=== PATIENT | male | born 1985 | race Caucasian/White ===

== ENCOUNTER 2023-01-15 19:39 | Emergency (ER) | payer BC, SELFPAY ==
[2023-01-15 21:04] VITALS: BP 122/82; PULSE 88; RESP 22; TEMP 36.6; O2SAT 95
[2023-01-15 21:49] LABS: Influenza A QL RT-PCR Negative (Negative); Influenza B QL RT-PCR Negative (Negative); RSV RNA, RT-PCR Negative (Negative); SARS-CoV-2 RNA PCR Negative
== END 2023-01-16 03:59 | disposition left against medical advice (07) ==
PROVIDERS: Emergency Provider Emergency Medicine; PCP Family Medicine
DX: R50.9 Fever, unspecified (principal); Z20.822 Contact with and (suspected) exposure to COVID-19
CPT/HCPCS: 87637; 99199

== ENCOUNTER 2023-01-16 08:05 | Emergency (ER) | payer BC, SELFPAY ==
--- NOTE | ~2023-01-16 | XR_ITS ---
EXAMINATION: XR chest 2V DATE: 01/16/2023 08:41 INDICATION: Increasing shortness of breath. Fever. TECHNIQUE: Frontal and lateral views of the chest were obtained. COMPARISON: None. FINDINGS: There is mild scarring at the lung apices. There is an 8 mm nodule in right upper lobe. No pleural effusion or pneumothorax. The heart size is normal. IMPRESSION: 1. 8 mm nodule in right upper lobe, which may be granulomatous disease or less likely malignancy. Non contrast chest CT is recommended. 2. Mild scarring at the lung apices. Reviewed, dictated and finalized at location A. UNITY ENGAGEMENT MANAGER IMPRESSION: 1. 8 mm nodule in right upper lobe, which may be granulomatous disease or less likely malignancy. Noncontrast chest CT is recommended. 2. Mild scarring at the lung apices.
--- NOTE | 2023-01-16 08:08 | ED.URI ---
HPI - URI/Sore Throat General Chief Complaint: Upper Respiratory Infection Stated Complaint: SOB/TIRED/FEVER Time Seen by Provider: 01/16/23 08:08 Source: patient and RN notes reviewed History of Present Illness HPI Narrative: Patient is a 37-year-old male who presents to urgent care with complaints of shortness of breath, worse on exertion, extreme fatigue and fevers. Patient states it started approximately 5 days ago and seems to have worsened. Patient states that he was supposed to go on vacation and flew to [place] on Friday and had to come back. Patient was in the emergency room last night and was negative for influenza, COVID and RSV. Patient left the emergency room before seen by a provider. Patient has had 2 bouts of strep throat this year but states that ?this does not feel like upper respiratory and ?. Patient denies any chest pain or palpitations. States he does feel like his chest is tight at times. No other acute complaints. No acute distress noted. Patient aware of the plan of care. Some parts of this dictation were generated by voice recognition software and may contain typographical and/or grammatical inaccuracies. Related Data Home Medications Medication Instructions Recorded Confirmed mirabegron 25 mg tablet,extended 25 mg PO DAILY 01/16/23 01/16/23 release 24 hr (Myrbetriq) Allergies Allergy/AdvReac Type Severity Reaction Status Date / Time cephalexin Allergy Unknown Rash Verified 01/16/23 08:25 Cephalosporins Allergy Unknown Unknown Verified 01/16/23 08:25 erythromycin base Allergy Unknown Nausea Verified 01/16/23 08:25 Review of Systems Review of Systems: CONSTITUTIONAL: Reports of fever, chills, fatigue EYES: Denies visual changes, redness, or discharge. ENT: Denies rhinorrhea, congestion, sore throat, or otalgia. CARDIOVASCULAR: Denies chest pain, palpitations, or edema. RESPIRATORY: Reports of productive cough and dyspnea GASTROINTESTINAL: Denies abdominal pain, nausea, vomiting, or diarrhea. GENITOURINARY: Denies dysuria or hematuria. SKIN: Denies rash or itching. MUSCULOSKELETAL: Denies back pain, joint pain, or myalgia. NEUROLOGIC: Denies headache, numbness, or weakness. All other systems reviewed are negative, except as documented in HPI. [facility] Past Medical History Medical History Back pain of lumbar region with sciatica Overweight (BMI 25.0-29.9) Family History Family History Mother Family history of malignant neoplasm of cervix Other Diabetes mellitus Social History Social History Smoking status: Never smoker Alcohol intake: current Comments At the time of my signature, I reviewed and agree with the nursing past medical, surgical, social, and family history. There is no relevant family history pertinent to the patient complaint. Exam Narrative: GENERAL: This is a well-nourished, well-developed patient, appears fatigued HEAD: normocephalic, atraumatic. EYES: PERRL. Sclera clear/white. Vision is grossly intact. EARS: External ears normal, auditory canals clear and without drainage, TMs normal without perforation. Hearing grossly intact. NOSE: External nose normal with no obvious nasal discharge, nares without redness, clear rhinorrhea. THROAT: Mucous membranes moist, posterior pharynx clear. Mild postnasal drainage NECK: Neck supple, non-tender without lymphadenopathy CARDIOVASCULAR: Regular rate and rhythm RESPIRATORY: Clear to auscultation. Breath sounds equal bilaterally. No wheezes, rales, or rhonchi. SKIN: warm, intact with no suspicious lesions or rash, good texture and turgor. NEURO: awake, alert, and oriented to person, place and time. There were no obvious focal neurologic abnormalities. EXTREMITIES: No clubbing, cyanosis, or edema. Course Course Level of Care: Express Care Visit Vital Signs
[2023-01-16 08:14] VITALS: BP 120/78; PULSE 74; RESP 16; TEMP 36.6; O2SAT 100
== END 2023-01-16 09:05 | disposition short-term general hospital (02) ==
PROVIDERS: Emergency Provider Nurse Practitioner Family; PCP Family Medicine
DX: R91.8 Other nonspecific abnormal finding of lung field (principal); R06.02 Shortness of breath; R53.83 Other fatigue
CPT/HCPCS: 71046; 99213; G0463

== ENCOUNTER 2023-01-16 09:23 | Emergency (ER) | payer BC, SELFPAY ==
[2023-01-16] VITALS (23 sets, daily range): BP systolic 127–150; BP diastolic 81–91; PULSE 68–101; RESP 11–23; TEMP 36.9; O2SAT 97–100
--- NOTE | ~2023-01-16 | CT_ITS ---
EXAMINATION: CTA chest PE protocol DATE: 01/16/2023 12:27 INDICATION: Dyspnea. Tachycardia. TECHNIQUE: Computed tomography angiography (CTA) of the chest was performed with 100 mL Omnipaque-350 intravenous contrast timed to evaluate the pulmonary arteries. Coronal maximum intensity projection 3D-reconstructions were created by the technologist. Automated exposure control and iterative reconst ruction technique were employed. The dose-length product was 440.51 mGy-cm. COMPARISON: None. FINDINGS: There is mild scarring at the lung apices. There is a cluster of nodules at right lung apex measuring up to 8 mm. There is mild emphysema. No pleural effusion. The heart size is normal. No per icardial effusion. There is no pulmonary embolus. There is mild thoracic spondylosis. IMPRESSION: 1. Nodules at right lung apex measuring up to 8 mm, most likely granulomatous disease. Noncontrast lo w-dose chest CT is recommended in 3-6 months to exclude malignancy. 2. Mild emphysema. 3. No pulmonary embolus. Reviewed, dictated and finalized at location A. KEN STUFFER IMPRESSION: 1. Nodules at right lung apex measuring up to 8 mm, most likely granulomatous d isease. Noncontrast low-dose chest CT is recommended in 3-6 months to exclude m alignancy. 2. Mild emphysema. 3. No pulmonary embolus.
--- NOTE | 2023-01-16 11:01 | ECG_ITS ---
Measurements Intervals [place] Rate: 69 P: 61 CO: 155 QRS: 63 QRSD: 113 T: 47 QT: 432 QTc: 465 Interpretive Statements SINUS RHYTHM INCOMPLETE RIGHT BUNDLE BRANCH BLOCK [90+ ms QRS DURATION, TERMINAL R IN V1/V2, 40+ ms S IN I/aVL/V4/V5/V6] NO PREVIOUS ECG AVAILABLE FOR COMPARISON Electronically Signed On 01-16-2023 14:59:15 DINKEY MECHANIC by Carlos Ramos M.D.
[2023-01-16 11:13] LABS: Basophils Percent Auto 0.6 % (0.2-1.2); Eosinophils Percent Auto 0.2 % (0-4.4); Hematocrit 48.2 % (42.0-52.0); Hemoglobin 16.5 g/dL (14.0-18.0); Immature Granulocyte Absolute 0.02 K/mm3 (0.00-0.031); Immature Granulocyte Percent A 0.4 % (0-0.5); Lymphocytes Absolute Auto 1.37 K/mm3 (0.9-3.2); Lymphocytes Percent Auto 25.1 % (18.3-44.2); Mean Corpuscular HGB Conc 34.2 g/dl (32-36); Mean Corpuscular Hemoglobin 29.7 pg (26-34); Mean Corpuscular Volume 86.7 fl (80-100); Mean Platelet Volume 9.4 fl (7.4-10.4); Monocytes Absolute Auto 0.6 K/mm3 (0.1-0.6); Neutrophils Absolute Auto 3.4 K/mm3 (1.3-6.7); Neutrophils Percent Auto 62.7 % (45.5-73.1); Platelet Count Result 369 k/mm3 (150-375); Red Blood Count 5.56 M/mm3 (4.6-6.20); Red Cell Distribution Width 13.2 % (11.5-14.5); White Blood Count 5.5 K/mm3 (4.5-10.0)
[2023-01-16 11:22] LABS: Alanine Aminotransferase 26 U/L (6-50); Albumin Level 5.2 g/dL (3.5-5.1); Alkaline Phosphatase 68 U/L (38-126); Anion Gap 11 mmol/L (8-16); Aspartate Amino Transferase 28 U/L (17-59); Bilirubin,Total 1.1 mg/dL (0.2-1.3); Blood Urea Nitrogen 17 mg/dL (9-20); Calcium 9.4 mg/dL (8.4-10.2); Carbon Dioxide 25 mmol/L (22-30); Chloride 104 mmol/L (98-107); Estimated CRCL calculation 94 ml/min; Estimated Glomerular Filt Rate > 60; Glucose 93 mg/dL (65-110); Potassium 3.8 mmol/L (3.4-5.0); Sodium 140 mmol/L (137-145)
--- NOTE | 2023-01-16 11:59 | ED.SOB ---
HPI - SOB/Dyspnea General Chief Complaint: Shortness of Breath/Dyspnea Stated Complaint: SOB - sent from abnormal CXR findings Time Seen by Provider: 01/16/23 11:46 History of Present Illness HPI Narrative: Patient is a 37-year-old male here for evaluation of dyspnea for the past several weeks. Patient states that he has been short of breath at rest and on exertion. Reports a heaviness sensation in his chest. He did have several days of a fever that he treated at home with ibuprofen and Tylenol, resolved. Reports a cough productive of purulent sputum. Patient states he used to smoke but quit, currently vapes. Sent from due to presence of nodule on CXR. Did have a recent trip to [place] for vacation. Related Data Home Medications Medication Instructions Recorded Confirmed mirabegron 25 mg tablet,extended 25 mg PO DAILY 01/16/23 01/16/23 release 24 hr (Myrbetriq) Allergies Allergy/AdvReac Type Severity Reaction Status Date / Time cephalexin Allergy Unknown Rash Verified 01/16/23 09:24 Cephalosporins Allergy Unknown Unknown Verified 01/16/23 09:24 erythromycin base Allergy Unknown Nausea Verified 01/16/23 09:24 Review of Systems Review of Systems: Gen.: Denies fevers or chills Eyes: Denies eye pain or visual change ENT: Denies congestion Respiratory: Reports shortness of breath and cough CV: Denies chest pain or palpitations GI: Denies abdominal pain nausea, emesis or diarrhea denies burning, urgency, frequency or hematuria Musculoskeletal: Denies back pain or muscle pain Neuro: Denies numbness, tingling, weakness or focal weakness Skin: Denies rash Except as documented, all other systems reviewed and negative [facility] Past Medical History Medical History Back pain of lumbar region with sciatica Overweight (BMI 25.0-29.9) Family History Family History Mother Family history of malignant neoplasm of cervix Other Diabetes mellitus Social History Social History Smoking status: Never smoker Alcohol intake: current Exam Narrative: APPEARANCE: Well appearing, no pain in distress, well-nourished. Head: Normocephalic and atraumatic. EYES: PERRLA/EOMI, conjunctivae clear NOSE: No nasal drainage EARS: External ear normal in appearance THROAT: Oropharynx is clear. Mucous membranes are moist. NECK: Supple. No adenopathy, no masses. RESPIRATORY: Airway patent, respirations nonlabored. Clear to auscultation bilaterally, no rales, rhonchi, wheezing. CARDIOVASCULAR: Regular rate and rhythm without murmurs, rubs, or gallops. ABDOMINAL: Normoactive bowel sounds. Soft, nontender, nondistended. No rebound tenderness or guarding. MUSCULOSKELETAL: Extremities are warm and well-perfused. Moves all extremities well. No edema. NEURO: Normal speech. No focal neurologic deficits. SKIN: Skin is warm and dry. No rashes. PSYCHIATRIC: Normal affect/mood. Course Vital Signs Vital signs: Vital Signs Temperature 98.5 F 01/16/23 09:37 Pulse Rate 93 01/16/23 09:37 Respiratory Rate 22 H 01/16/23 09:37 Blood Pressure 141/90 H 01/16/23 09:37 Pulse Oximetry 100 01/16/23 09:37 Oxygen Delivery Room Air 01/16/23 09:37 Temperature 98.5 F 01/16/23 09:37 Pulse Rate 80 01/16/23 14:00 Respiratory Rate 23 H 01/16/23 14:00 Blood Pressure 147/86 H 01/16/23 14:00 Pulse Oximetry 100 01/16/23 14:00 Oxygen Delivery Room Air 01/16/23 09:37 MDM - SOB/Dyspnea MDM Narrative Medical decision making narrative: 37-year-old male here for evaluation of dyspnea over the past several weeks, sent from d/t pulmonary nodule seen on CXR. Patient is non-toxic in appearance with slight tachypnea to 22 but no respiratory distress. Complaining of mild chest tightness; EKG and trop are non-ischemic. CTA PE study confirms findings of nodul
[2023-01-16 12:59] LABS: Troponin I < 0.012 ng/mL (0.000-0.034)
[2023-01-16] MEDS: ALBUTEROL SULFATE NEB 2.5 MG/3 ML INH INHALATION (13:20)
== END 2023-01-16 14:07 | disposition home or self-care (01) ==
PROVIDERS: Emergency Medicine; Emergency Provider Physician Assistant; PCP Family Medicine
DX: R91.8 Other nonspecific abnormal finding of lung field (principal); E66.3 Overweight; Z68.26 Body mass index [BMI] 26.0-26.9, adult; F17.290 Nicotine dependence, other tobacco product, uncomplicated; J43.9 Emphysema, unspecified; I45.10 Unspecified right bundle-branch block
CPT/HCPCS: 36415; 71275; 80053; 84484; 85025; 87070; 87205; 93005; 94640; 99284; Q9967

== ENCOUNTER 2023-03-13 08:05 | Outpatient (CLI) | payer BC, SELFPAY ==
--- NOTE | 2023-03-14 12:12 | P.PCNPFT_ITS ---
PFT Procedure Performed PFT Procedure Performed Spirometry with Pre/Post Bronchodilator Plethysmography (Lung Vol) Diffusing Cap (DLCO) Flow Vol Loop PFT Interpretation DOS: 03/13/2023 REQUESTING: Mio Rao APRN REASON FOR TESTING: emphysema PULMONARY FUNCTION TESTS Results are reliable and reproducible. Spirometry: Pre-bronchodilator FEV1 is 4.73 L, 125%, elevated. Pre- bronchodilator FVC is 6.04 L, 131%, elevated. The FEV1/ FVC ratio is 78%, normal. After bronchodilator, the FEV1 increases 7%, 5.05 L, 133% predicted. After bronchodilator the FVC increases 1%, 6.11 L, 132% predicted. The FEV1/FVC ratio is 83%. This is not statistically significant. Lung volumes: Total lung capacity is elevated 7.26 L, 122%, mild hyperinflation. Residual volume is 1.22 L, 68%, normal. RV/TLC is 17%, below normal. Airway resistance is 1.65, 146% predicted. Diffusion: DLCO Is 32.1, 120%, within the normal range. DLCO/VA is 4.89, 107%, normal. Flow volume loop: Normal. IMPRESSION: The study shows normal spirometry, mild hyperinflation, no air trapping and normal DLCO. Lack of response to bronchodilator should not preclude use if clinically indicated. Clinical correlation recommended. Malena Kebede MD
== END 2023-03-13 08:06 | disposition home or self-care (01) ==
LOC: ANHPFT 08:07
PROVIDERS: PCP Family Medicine; Visit Provider Nurse Practitioner Family
DX: J43.9 Emphysema, unspecified (principal); R94.2 Abnormal results of pulmonary function studies
CPT/HCPCS: 94060; 94726; 94729

== ENCOUNTER 2023-04-15 14:33 | Outpatient (CLI) | payer BC, SELFPAY ==
--- NOTE | ~2023-04-15 | CT_ITS ---
CT Scan of the Chest without Contrast: Clinical Indication: Pulmonary nodule Technique: Contiguous sections were acquired throughout the chest without intravenous contrast. Dose reduction technique was used on this scan by utilizing automated exposure control and iterative recon struction technique. The dose-length product (DLP) was 133.50 mGy-cm. COMPARISON: 01/16/2023 Findings: There is no evidence of any significant mediastinal, hilar or axillary lymphadenopathy. The mediastin al soft tissues appear normal. There is no evidence of pleural or pericardial effusion. Stable right apical pulmonary nodules. Left lung is clear. Images through the upper abdomen reveal no abnormalities. Impression: Stable right apical pulmonary nodules, likely chronic scarring. Reviewed, dictated and finalized at location . Impression: Stable right apical pulmonary nodules, likely chronic scarring.
== END 2023-04-15 14:34 | disposition home or self-care (01) ==
LOC: ANHIMG 14:35
PROVIDERS: PCP Family Medicine; Visit Provider Physician Assistant
DX: R91.1 Solitary pulmonary nodule (principal); R91.8 Other nonspecific abnormal finding of lung field
CPT/HCPCS: 71250

== ENCOUNTER 2024-04-27 08:18 | Outpatient (CLI) | payer BC, SELFPAY ==
--- NOTE | ~2024-04-27 | CT_ITS ---
EXAMINATION:CT diagnostic chest wo con DATE: 04/27/2024 08:41 INDICATION: Solitary pulmonary nodule. TECHNIQUE: Computed tomography (CT) of the chest was performed without intravenous contrast. Automate d exposure control and iterative reconstruction technique were employed. The dose-length product (DLP ) was 104.59 mGy-cm. COMPARISON: Chest CT 04/15/2023, 01/16/2023 FINDINGS: There is stable mild scarring at the lung apices. There are stable nodules in right upper l obe measuring up to 9 mm. No pleural effusion. The heart size is normal. No pericardial effusion. The bones are unremarkable. IMPRESSION: 1. Right upper lobe pulmonary nodules measuring up to 9 mm, stable from 01/16/2023, likely benign. Non contrast low-dose chest CT is recommended in one year. Reviewed, dictated and finalized at location A. IMPRESSION: 1. Right upper lobe pulmonary nodules measuring up to 9 mm, stable from 01/16/20 23, likely benign. Noncontrast low-dose chest CT is recommended in one year.
== END 2024-04-27 08:19 | disposition home or self-care (01) ==
PROVIDERS: PCP Family Medicine; Visit Provider Physician Assistant
DX: R91.1 Solitary pulmonary nodule (principal)
CPT/HCPCS: 71250

== ENCOUNTER 2025-03-30 13:50 | Emergency (ER) | payer BC, SELFPAY ==
[2025-03-30 13:57] VITALS: BP 121/80; PULSE 84; RESP 16; TEMP 37; O2SAT 98
--- NOTE | 2025-03-30 14:03 | ED.MALEGU ---
HPI - Male Genitourinary General Chief complaint: Urogenital-Male Stated complaint: UTI SYMPTOMS Time Seen by Provider: 03/30/25 14:03 Source: patient and RN notes reviewed Mode of arrival: ambulatory Limitations: no limitations History of Present Illness HPI Narrative: 39-year-old male presents Express Care complaining with pain with urination for 1 day. Patient reports burning with urination, increased frequency, and sensation of not emptying his bladder completely. Patient also states he feels the burning sensation while he is urinating at the tip of his penis. Patient does not believe he has had any penile discharge but states that he noticed what appears to be lint on the tip of his penis that was easily removed and was odorless. Patient denies any concerns for STIs. Patient says he has not had any sexual intercourse with his spouse since October because he is on prophylactic medications for HIV due to a needlestick injury at the [facility] he works at. Patient denies any testicular pain, scrotal pain, blood in his urine, abdominal pain, flank pain, fevers, body aches, chills. Related Data Home Medications ?Medication ?Instructions ?Recorded ?Confirmed ?Last Taken ?Type hiv prophylactic 03/30/25 Unknown History Allergies Allergy/AdvReac Type Severity Reaction Status Date / Time cephalexin Allergy Unknown Rash Verified 03/30/25 13:58 Cephalosporins Allergy Unknown Unknown Verified 03/30/25 13:58 erythromycin base Allergy Unknown Nausea Verified 03/30/25 13:58 Review of Systems Review of Systems: CONSTITUTIONAL: Denies fever, chills, or sweats. EYES: Denies visual changes, redness, or discharge. ENT: Denies rhinorrhea, congestion, sore throat, or otalgia. CARDIOVASCULAR: Denies chest pain, palpitations, or edema. RESPIRATORY: Denies cough or dyspnea. GASTROINTESTINAL: Denies abdominal pain, nausea, vomiting, or diarrhea. GENITOURINARY: Positive for dysuria. Negative for hematuria, penile discharge, scrotal or testicular pain. SKIN: Denies rash or itching. MUSCULOSKELETAL: Denies back pain, joint pain, or myalgia. NEUROLOGIC: Denies headache, numbness, or weakness. PSYCHIATRIC: Denies anxiety or depression. All other systems reviewed are negative, except as documented in HPI. COUNT INCLUDES [facility] Past Medical History Medical History Overweight (BMI 25.0-29.9) Back pain of lumbar region with sciatica Family History Family History Mother Family history of malignant neoplasm of cervix Other Diabetes mellitus Social History Social History Smoking packs per day: 0.50 Smoking cigarettes per day: 10.0 Years smoked: 19 Smoking pack-years: 9.50 Smoking status: Former smoker Tobacco type: cigarettes Smoking end date: 02/18/22 Alcohol intake: current Lack of Transportation: No Lack of Food: Never True Current Housing: I Have Housing Concerned About Future Housing: No Difficulty Paying Gas/Electric Bills: No Difficulty Paying for Meds: No Currently Unemployed: No Education: Master's Degree or Higher Difficulty w/ Childcare or Family Care: No Comments At the time of my signature, I reviewed and agree with the nursing past medical, surgical, social, and family history. There is no relevant family history pertinent to the patient complaint. Exam Narrative: GENERAL: This is a well-nourished, well-developed adult, in no apparent distress. They are non ill-appearing, nontoxic appearing. HEAD: normocephalic, atraumatic. EYES: Sclera clear/white. Conjunctiva normal. Vision is grossly intact. Extraocular movements intact EARS: External ears normal, Hearing grossly intact. NOSE: External nose normal THROAT: Mucous membranes moist NECK: Normal range of motion CARDIOVASCULAR: Regular rate and rhythm without murmurs, gallops, or rubs. RESPIRATORY: Clear to auscultation. Breath sounds equal bilaterally. No wheezes, rales, or rhonchi. GASTROINTESTINAL: Abdomen soft, flat, non-tender, nondistended. Bowel sounds are active. No hepato-splenomegaly, or palpable masses. No guarding. GENITOURINARY: Penis: Glans penis without swelling, discharge, erythema, or tenderness. External penis is normal. Normal scrotum. Normal testicles. No suspicious lesions or rash to the male genitals. Cremasteric reflex intact bilaterally. SKIN: warm, Dry, intact with no suspicious lesions or rash, good texture and turgor. NEURO: awake, alert, and oriented to person, place and time. There were no obvious focal neurologic abnormalities. EXTREMITIES: No joint tenderness, effusion, or edema noted. BACK: Nontender without deformity. No CVA tenderness. Course Course Emergency Course: Portions of this record may have been created with voice recognition software Level of Care: Express Care Visit Vital Signs Vital signs: Vital Signs Temperature 98.6 F 03/30/25 13:57 Pulse Rate 84 03/30/25 13:57 Respiratory Rate 16 03/30/25 13:57 Blood Pressure 121/80 03/30/25 13:57 Pulse Oximetry 98 03/30/25 13:57 Temperature 98.6 F 03/30/25 13:57 Pulse Rate 84 03/30/25 13:57 Respiratory Rate 16 03/30/25 13:57 Blood Pressure 121/80 03/30/25 13:57 Pulse Oximetry 98 03/30/25 13:57 Reviewed MDM - Male Genitourinary MDM Narrative Medical decision making narrative: Urine dipstick revealed microscopic hematuria otherwise unremarkable urine. Urine culture is pending. Genital exam was performed with Loan FUNES in the room as a office manager executive assistant. Genital exam was unremarkable. Patient having no abdominal pain, this back pain, or flank pain. Patient is afebrile. Patient is adamantly denying any concerns for STIs. Patient declines further STI testing. Given patient's symptoms will go ahead and treat for urinary tract infection. Will treat him with Bactrim. Discussed physical exam findings. Advised supportive measures and signs/symptoms to go to the ER. Pt is appropriate for outpt treatment and f/u. Differential Diagnosis Differential diagnosis: Likely urinary tract infection, prostatitis and other (STI, renal stone) Lab Data Attestation: I reviewed the patient's lab results. Labs: Lab Results 03/30/25 03/30/25 Range/Units 14:02 14:23 POC Urine Color Yellow Yellow POC Urine Clarity Clear Clear POC Urine pH 7.0 7.0 POC Ur Specif [place] 1.025 1.025 POC Urine Protein Negative Negative (Negative) POC Ur Glucose (UA) Negative Negative (Negative) POC Urine Ketones Trace Trace (Negative) POC Urine Blood Trace Trace (Negative) POC Urine Nitrite Negative Negative (Negative) POC Urine Bilirubin Negative Negative (Negative) POC Urine Urobilinogen 0.2 0.2 POC U Leukocyte Esteras Negative Negative (Negative) Critical Care Time Critical Care Time Critical Care Time: No Discharge Plan Discharge Clinical Impression: Urinary tract infection Qualifiers: Urinary tract infection type: site unspecified Hematuria presence: with hematuria Qualified Code(s): N39.0 - Urinary tract infection, site not specified Patient Disposition: Home Condition: Stable Instructions: Antibiotic Form, Urinary Tract Infection in Men (ED) Additional Instructions: Take the antibiotic as prescribed The urine will be sent of for a culture to identify what type of bacteria is causing your infection. If the culture shows that the antibiotic will not get rid of your infection, you will be notified and a new antibiotic will be called in for you. Increase water intake Follow-up with PCP in 1 week. Go to the ER if you develop any fevers, abdominal pain, testicular pain or any other concerns. Patient Language: Khmer Prescriptions: New sulfamethoxazole-trimethoprim [Bactrim DS] 800-160 mg tablet 1 tablet PO Q12H 7 Days Qty: 14 0RF No Action hiv prophylactic Follow-up/Referrals: Abraham Ford MD [Primary Care Provider] - Time of Disposition: 14:27
[2025-03-30 14:05] LABS: EDUAAPPEAR Clear; EDUABILI Negative (Negative); EDUABLOOD Trace (Negative); EDUACOLOR1 Yellow; EDUAGLUCOSE Negative (Negative); EDUAKETONE Trace (Negative); EDUALEUKO Negative (Negative); EDUANITRATE Negative (Negative); EDUAPROTEIN Negative (Negative); EDUASPGRAVITY 1.025; EDUAUROBILI 0.2
[2025-03-30 14:26] LABS: EDUAAPPEAR Clear; EDUABILI Negative (Negative); EDUABLOOD Trace (Negative); EDUACOLOR1 Yellow; EDUAGLUCOSE Negative (Negative); EDUAKETONE Trace (Negative); EDUALEUKO Negative (Negative); EDUANITRATE Negative (Negative); EDUAPROTEIN Negative (Negative); EDUASPGRAVITY 1.025; EDUAUROBILI 0.2
== END 2025-03-30 14:30 | disposition home or self-care (01) ==
PROVIDERS: PCP Family Medicine
DX: N39.0 Urinary tract infection, site not specified (principal); Z87.891 Personal history of nicotine dependence
CPT/HCPCS: 81003; 87086; 99213; G0463

== ENCOUNTER 2025-04-12 15:26 | Outpatient (CLI) | payer BC, SELFPAY ==
--- NOTE | ~2025-04-12 | CT_ITS ---
CT Scan of the Chest without Contrast: Clinical Indication: Pulmonary nodule Technique: Contiguous sections were acquired throughout the chest without intravenous contrast. Dose reduction technique was used on this scan by utilizing automated exposure control and iterative recon struction technique. The dose-length product (DLP) was 98.27 mGy-cm. COMPARISON: 04/27/2024 Findings: There is no evidence of any significant mediastinal, hilar or axillary lymphadenopathy. The mediastin al soft tissues appear normal. There is no evidence of pleural or pericardial effusion. Stable peripheral right apical pulmonary nodule measuring up to 8 mm in diameter. Images through the upper abdomen reveal punctate nonobstructing right renal stone. Impression: Stable right apical pulmonary nodule, as detailed above. Reviewed, dictated and finalized at location . Impression: Stable right apical pulmonary nodule, as detailed above.
--- OUTSIDE RECORDS SUMMARY | 2025-04-12 15:28 | XMS_ITS | Continuity of Care Document ---
Author Organization [facility] Address [address] [place] [address] utive [facility] [address] [place] [address] Phone Care Team Providers Care Hypercil Core Transformer Assembler Name Role Phone Raúl Sanchez Unavailable Unavailable Advance Directives Directive Yes / No Effective Date File Name No Information Encounters Encounter Description Practice Location Reason(s) For Visit Diagnoses Date Provider Providers Copied on Encounter [facility], [address] [place] [address] [address], [place], [place], [id number], [place] tel:[phone] [facility] No Information Mar-2 5-200 5 Doisy Edward. [address] , [address], [place], [address], [place]. tel:[phone] Referring Provider: Morgan Johnson MD [facility], [address] [place] [address], [id number]. tel:[phone] Family History Family Member Type Diagnosis Age At Onset No Information Payers Payer name Insurance type Covered green party ID Authoriza tion(s) No Information Social History Type Description Quantity Date Captured Comments Sex Male Smoking Status No Information Chief Complaint And Reason For Visit No Information Reason For Referral Reason For Referral No Information History Of Present Illness Encounter Date Complaint History Of Prese nt Illness No Information Functional Status Date Functional Assessmen t No Information Instructions Date Instruction Additional Infor mation No Information Assessments Type Assessment Date No Information Patient Care Teams Name Effective Dates (start - stop) Status Members No Information
== END 2025-04-12 15:27 | disposition home or self-care (01) ==
PROVIDERS: PCP Family Medicine; Visit Provider Physician Assistant
DX: R91.1 Solitary pulmonary nodule (principal)
CPT/HCPCS: 71250